=== PATIENT | female | born 1965 | race Caucasian/White ===

== ENCOUNTER → 2019-07-09 | Outpatient (CLI) | payer OTHER ==
--- NOTE | 2019-07-09 12:11 | MM ---
Reason for exam: screening (asymptomatic). Last mammogram was performed 5 years and 4 months ago. History: Patient is postmenopausal and is nulliparous. Benign excisional biopsy of the right breast, 2013. Took hormonal contraceptives for 8 years. Physical Findings: A clinical breast exam by your physician is recommended on an annual basis and results should be correlated with mammographic findings. MG Screening Mammo w CAD Bilateral CC and MLO view(s) were taken. Prior study comparison: February 26, 2014, bilateral MG screening mammo w CAD. May 18, 2000, bilateral screening mammogram. The breast tissue is heterogeneously dense. This may lower the sensitivity of mammography. No suspicious abnormality. No significant changes when compared with prior studies. ASSESSMENT: Negative, BI-RAD 1 RECOMMENDATION: Routine screening mammogram of both breasts in 1 year.
== END ==
LOC: RADMAMWWP 09:50
PROVIDERS: ATTEND Family Medicine
DX: Z12.31 Encounter for screening mammogram for malignant neoplasm of breast (principal)
CPT/HCPCS: 77067

== ENCOUNTER → 2021-02-04 | Outpatient (CLI) | payer OTHER ==
--- NOTE | 2021-02-04 12:45 | XR ---
EXAMINATION TYPE: XR foot complete RT DATE OF EXAM: 02/04/2021 COMPARISON: None HISTORY: Pain rolled right foot December 20, swelling TECHNIQUE: 3 view right foot FINDINGS: No acute fractures are evident. No subacute fractures are evident. Joint spaces appear pres erved. Soft tissues appear unremarkable. IMPRESSION: 1. Normal three-view right foot. No acute or subacute osseous abnormality evident
== END | disposition home or self-care (01) ==
LOC: RADXRMAIN 11:21
PROVIDERS: ATTEND Family Medicine
DX: M79.671 Pain in right foot (principal); M79.89 Other specified soft tissue disorders

== ENCOUNTER → 2023-07-05 | Outpatient (CLI) | payer OTHER ==
--- NOTE | 2023-07-05 07:39 | MM ---
Reason for Exam: Screening (asymptomatic). Last mammogram was performed 4 year(s) and 0 month(s) ago. Patient History: Menarche at age 15. Patient has no children. Postmenopausal. Patient used Hormonal Contraceptives for 8 years. 2013, Benign Excisional Biopsy on the right side. Risk Values: Zari 5 year model risk: 1.6%. NCI Lifetime model risk: 9.1%. Prior Study Comparison: 05/18/2000 Bilateral Screening Mammogram, [facility]. 02/26/2014 Bilateral Screening Mammogram, [facility]. 07/09/2019 Bilateral Screening Mammogram, [facility]. Tissue Density: The breast tissue is heterogeneously dense. This may lower the sensitivity of mammography. Findings: Analyzed By CAD. There is no suspicious group of microcalcifications or new suspicious mass in either breast. Overall Assessment: Negative, BI-RAD 1 Management: Screening Mammogram of both breasts in 1 year. A clinical breast exam by your physician is recommended on an annual basis and results should be correlated with mammographic findings. Note on Zari scores and lifetime risk: 1. A Zari score greater than 3% is considered moderate risk. If this is the case, consider specialist referral to assess eligibility for a risk reducing agent. If overall lifetime risk for the development of breast cancer is 20% or higher, the patient may qualify for future screening with alternating mammogram and breast MRI. Electronically signed and approved by: Roosevelt Varghese D.O.
== END | disposition home or self-care (01) ==
LOC: RADMAMWWP 06:58
PROVIDERS: ATTEND Family Medicine
DX: Z12.31 Encounter for screening mammogram for malignant neoplasm of breast (principal); Z78.0 Asymptomatic menopausal state
CPT/HCPCS: 77067